=== PATIENT | female | born 1945 | race Caucasian/White ===

== ENCOUNTER 2021-05-04 23:09 | Emergency (ER) | payer MEDICARE, BC ==
[~2021-05-04] VITALS: Ht 167.6 cm; Wt 123.4 kg
--- NOTE | 2021-05-04 23:40 | NUR ---
PT AMBULATED TO ER WITH STEADY GAIT C/O RT TRAN LACERATION AFTER ACCIDENTALLY LACERATING HER TRAN ON A WODDEN SLAB 4 HRS [employer]. A/O X4, NO SOB OR LABORED BREATHING, AFEBRILE. DENIES ANY CP/PRESSURE. NO GI/ DISTRESS. CLEAR SPEECH, COMPLETE SENTENCES.
--- NOTE | 2021-05-05 00:05 | NUR ---
DR. MADDEN AT BEDSIDE, MSE IN PROGRESS.
[2021-05-05] MEDS ORDERED: LIDOCAINE HCL 1% 20 ML VIAL IJ ONE (00:15)
[2021-05-05] MEDS ORDERED: BACITRACIN ZINC OINT 15 GM TUBE ONE (01:13)
--- NOTE | 2021-05-05 01:20 | NUR ---
Patient discharged to home in stable condition. Written and verbal after care instructions given. Patient verbalizes understanding of instructions. Stressed follow up or return to ER for worsening s/s. Steady gait, denies any pain/discomfort upon discharge. Picked up by .
[2021-05-05 01:21] VITALS: BP 135/70
[2021-05-05] MEDS ORDERED: BACITRACIN ZINC OINT 15 GM TUBE TOP ONE (01:30)
== END 2021-05-05 01:21 | disposition home or self-care (01) ==
LOC: ER 23:19
DX: S81.811A Laceration without foreign body, right lower leg, initial encounter (principal); E78.5 Hyperlipidemia, unspecified; W26.8XXA Contact with other sharp object(s), not elsewhere classified, initial encounter; Y93.89 Activity, other specified; Y92.89 Other specified places as the place of occurrence of the external cause; Y99.8 Other external cause status
CPT/HCPCS: 12002; 99282; J3490; A4217; A4663

== ENCOUNTER 2021-12-25 11:19 | Emergency (ER) | payer MEDICARE, BC ==
[~2021-12-25] VITALS: Ht 167.6 cm; Wt 124.7 kg
[2021-12-25] MEDS ORDERED: SINGULAR (11:33)
[2021-12-25] MEDS ORDERED: EZET10TA15 PO (11:33)
[2021-12-25] MEDS ORDERED: LOSARTAN (11:33)
[2021-12-25] MEDS ORDERED: BACITRACIN ZINC OINT 15 GM TUBE TOP ONE (11:45)
--- NOTE | 2021-12-25 12:12 | NUR ---
WOUND CLEANED W/ NS; DERMABOND APPLIED BY . BACITRACIN APPLIED AND WOUND COVERED WITH 4X4'S AND SECURED WITH AN GROVER BANDAGE. PT GIANLUCA WELL.
--- NOTE | 2021-12-25 12:13 | NUR ---
Patient discharged to home in stable condition. Written and verbal after care instructions given, instructed pt to follow up with pmd. Patient verbalizes understanding of instructions. Stressed follow up or return to ER for worsening s/s.
[2021-12-25] MEDS ORDERED: BACITRACIN ZINC OINT 15 GM TUBE ONE (12:19)
== END 2021-12-25 12:30 | disposition home or self-care (01) ==
LOC: ER 11:19
DX: S81.811A Laceration without foreign body, right lower leg, initial encounter (principal); W26.8XXA Contact with other sharp object(s), not elsewhere classified, initial encounter; Y93.89 Activity, other specified; Y92.019 Unspecified place in single-family (private) house as the place of occurrence of the external cause; I10 Essential (primary) hypertension; M19.90 Unspecified osteoarthritis, unspecified site
CPT/HCPCS: A4663

== ENCOUNTER 2021-12-29 17:00 | Emergency (ER) | payer MEDICARE, BC ==
[~2021-12-29] VITALS: Ht 167.6 cm; Wt 124.7 kg
[~2021-12-29 17:00] MED LIST: EZET10TA15 PO; LOSARTAN; SINGULAR
--- NOTE | 2021-12-29 17:30 | NUR ---
DR MAYERS AT BEDSIDE FOE EVALUATION.
--- NOTE | 2021-12-29 18:04 | NUR ---
Pt discharged to home in stable condition. Written and verbal after care instructions given. Pt verbalizes understanding of instructions. Stressed follow up or return to ER for worsening s/s.
--- NOTE | 2021-12-29 18:17 | NUR ---
Pt arrived with walker with c/o RT LEG LAC with skin glue applied on 12/25/21. Pt denies pain and discomfort. Afebrile. No signs of infection. ERMD is in room for MSE.
[2021-12-29 18:21] VITALS: BP 140/80
== END 2021-12-29 18:04 | disposition home or self-care (01) ==
LOC: ER 17:00
DX: S81.811D Laceration without foreign body, right lower leg, subsequent encounter (principal); X58.XXXD Exposure to other specified factors, subsequent encounter; E78.5 Hyperlipidemia, unspecified; J45.909 Unspecified asthma, uncomplicated
CPT/HCPCS: A4663